=== PATIENT | male | born 1970 | race Caucasian/White ===

== ENCOUNTER → 2018-05-01 | Outpatient (CLI) | payer OTHER ==
--- NOTE | 2018-05-01 17:53 | REP ---
BILATERAL LOWER EXTREMITY ARTERIAL DOPPLER ULTRASOUND: 05/01/2018. Clinical history: Peripheral vascular disease: Bilateral lower extremity pain and numbness. Findings: No prior study. The right SHELL is 1.05 with a brachial pulse 190, dorsalis pedis 180, [employer] 200. Right lower extremity: Peak systolic velocity: Phasicity.SPACE AND MISSILE OPERATIONS SPACELIFT: 117 cm/S triphasicProfunda: 105 cm/S triphasicSFA proximal: 89 cm/S triphasicSFA mid: 102 cm/S triphasicSFA distal: 92.3 cm/S triphasicPopliteal: 50.7 cm/S triphasicATA proximal: 48.3 cm/S triphasicTibioperoneal trunk: 63.9 cm/S triphasicPTA proximal: 66.1. Cm/S triphasicPTA distal: 48.1 cm/S biphasicATA distal: 49 cm/S biphasic. The left SHELL is 1.1 with a brachial pulse 190, dorsalis pedis 202 and [employer] 210. Left lower extremity: Peak systolic velocity: Phasicity.SPACE AND MISSILE OPERATIONS SPACELIFT: 99.6 cm/S triphasicProfunda: 70.5 cm/S triphasicSFA proximal: 100 cm/S triphasicSFA mid: 125 cm/S triphasicSFA distal: 82.6 cm/S triphasicPopliteal: 64.9 cm/S triphasicATA proximal: 37.8 cm/S triphasicTibioperoneal trunk: 60.9 cm/S triphasicPTA proximal: 63.8 cm/S triphasicPTA distal: 44.7 cm/S biphasicATA distal: 52.8 cm/S triphasic. There is minimal arterial disease evident bilaterally but no significant stenosis. Mostly triphasic wave forms with only distal [employer] bilaterally on the right RASHID distally showing biphasic wave form. Both ABIs are normal. Electronically Signed by Dirk Gabriel MD 05/01/2018 07:59 P
== END ==
LOC: M RAD 11:13
PROVIDERS: ATTEND Surgery Vascular Surgery
DX: M79.604 Pain in right leg (principal); M79.605 Pain in left leg

== ENCOUNTER → 2019-03-31 | Outpatient (CLI) | payer OTHER ==
--- NOTE | 2019-04-01 03:33 | REP ---
Clinical: Symptoms related to atherosclerotic disease and intermittent claudication. Technique: Real time singh scale and color Doppler evaluation of the bilateral lower extremity arterial vasculature using linear high frequency transducer. Findings: Singh scale and color images demonstrate mild to moderate amounts of atheromatous plaquing with areas of minimal narrowing but no focal stenosis identified. Doppler interrogation demonstrates normal primarily triphasic arterial wave forms and velocities bilaterally. 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 Electronically Signed by Ruiz Purdy MD 04/01/2019 03:26 A
== END ==
LOC: M RAD 09:08
PROVIDERS: ATTEND Physician Assistant
DX: M79.604 Pain in right leg (principal); M79.605 Pain in left leg; I70.203 Unspecified atherosclerosis of native arteries of extremities, bilateral legs

== ENCOUNTER → 2023-02-04 | Outpatient (CLI) | payer OTHER | LOC: M RAD 11:49 | PROVIDERS: ATTEND Physician Assistant | DX: D41.02 Neoplasm of uncertain behavior of left kidney (principal) | CPT/HCPCS: 78707; A9562 ==

== ENCOUNTER → 2023-11-18 | Outpatient (CLI) | payer OTHER ==
[2023-11-18 16:13] LABS: HEMOGLOBIN A1c 5.5 % (4.0-6.0)
[2023-11-18 16:23] LABS: RHEUMATOID FACTOR QUANT 6.8 IU/ML (<14)
[2023-11-18 16:24] LABS: FOLATE 9.3 NG/ML (>5.4)
== END ==
LOC: M PLALAB 13:26
PROVIDERS: ATTEND Psychiatry & Neurology Neurology
DX: G35 Multiple sclerosis (principal)

== ENCOUNTER → 2023-11-21 | Outpatient (REF) | payer OTHER | LOC: M LABDRAWP 12:28 | PROVIDERS: ATTEND Psychiatry & Neurology Neurology | DX: G35 Multiple sclerosis (principal) ==

== ENCOUNTER → 2025-01-10 | Outpatient (CLI) | payer OTHER ==
[~2025-01-10] MED LIST: ISOVUE-370 76% 100 ML VIAL As Ordered ONE
== END ==
LOC: M RAD 13:58
PROVIDERS: ATTEND Urology
DX: C64.2 Malignant neoplasm of left kidney, except renal pelvis (principal); I25.10 Atherosclerotic heart disease of native coronary artery without angina pectoris; Z90.5 Acquired absence of kidney; N28.1 Cyst of kidney, acquired; K42.9 Umbilical hernia without obstruction or gangrene
CPT/HCPCS: 74178; Q9967